=== PATIENT | female | born 1995 | race Caucasian/White ===

== ENCOUNTER 2017-02-21 20:46 | Emergency (ER) | payer OTHER ==
[~2017-02-21 20:46] MED LIST: COLACE 100MG C100 MG PO
== END 2017-02-21 23:00 | disposition home or self-care (01) ==
LOC: ER1 20:46
DX: O99.89 Other specified diseases and conditions complicating pregnancy, childbirth and the puerperium (principal); J02.9 Acute pharyngitis, unspecified; H92.03 Otalgia, bilateral; R19.7 Diarrhea, unspecified; O99.332 Smoking (tobacco) complicating pregnancy, second trimester; F17.210 Nicotine dependence, cigarettes, uncomplicated; Z3A.25 25 weeks gestation of pregnancy
CPT/HCPCS: 86403; 87081; 87880; 99283

== ENCOUNTER 2017-06-13 05:08 | Inpatient (IN) | payer OTHER ==
[~2017-06-13] VITALS: Ht 170.2 cm; Wt 97.5 kg
[2017-06-14 06:51] LABS: HEMOGLOBIN 10.5 gm/dl (12.3-15.3)
[2017-06-14] MEDS ORDERED: NORCO 10-325 T1 EACH PO (09:10)
[2017-06-14] MEDS ORDERED: IBUPROFEN600 MG PO (09:11)
== END 2017-06-14 07:15 | disposition home or self-care (01) | DRG 766 ==
LOC: OB 05:08
PROVIDERS: ADMIT Obstetrics & Gynecology
PROC: 3E0234Z Introduction of Serum, Toxoid and Vaccine into Muscle, Percutaneous Approach (ICD-10-PCS; 2017-06-13)
PROC: 10D00Z1 Extraction of Products of Conception, Low, Open Approach (ICD-10-PCS; principal; 2017-06-13 09:15)
DX: O34.211 Maternal care for low transverse scar from previous cesarean delivery (principal); N85.8 Other specified noninflammatory disorders of uterus; Z3A.39 39 weeks gestation of pregnancy; Z37.0 Single live birth; Z23 Encounter for immunization; O99.330 Smoking (tobacco) complicating pregnancy, unspecified trimester; F17.210 Nicotine dependence, cigarettes, uncomplicated; O99.613 Diseases of the digestive system complicating pregnancy, third trimester; K21.9 Gastro-esophageal reflux disease without esophagitis
CPT/HCPCS: 36415; 82800; 85014; 85018; 90715; C9113; J0690; J2274; J2300; J2405; J2590; J2765; J3010; J7120

== ENCOUNTER 2021-01-31 00:25 | Emergency (ER) | payer OTHER ==
[~2021-01-31 00:25] MED LIST changes: +BACTRIM DS TAB1 EACH PO; +BACTROBAN OINT22 GM EXT; +IBUPROFEN600 MG PO; +IBUPROFEN800 MG PO; +NORCO 10-325 T1 EACH PO; +ZANTAC300 MG PO
== END 2021-01-31 02:00 | disposition home or self-care (01) ==
LOC: ER1 00:25
DX: K08.89 Other specified disorders of teeth and supporting structures (principal); F17.210 Nicotine dependence, cigarettes, uncomplicated; Z79.899 Other long term (current) drug therapy
CPT/HCPCS: 99282

== ENCOUNTER 2022-06-26 00:27 | Emergency (ER) | payer OTHER ==
[2022-06-26 02:51] LABS: HEMOGLOBIN 8.9 gm/dl (12.3-15.3); RED BLOOD COUNT 2.95 M/UL (4.00-5.10); WHITE BLOOD COUNT 11.5 K/UL (4.5-11.0)
[2022-06-26 03:09] LABS: BUN/CREATININE RATIO 23 (0-10)
[2022-06-26] MEDS ORDERED: MELOXICAM7.5 MG PO (05:02)
== END 2022-06-26 05:15 | disposition home or self-care (01) ==
LOC: ER1 00:27
PROVIDERS: Student in an Organized Health Care Education/Training Program
DX: K91.870 Postprocedural hematoma of a digestive system organ or structure following a digestive system procedure (principal); K66.1 Hemoperitoneum; F17.210 Nicotine dependence, cigarettes, uncomplicated
CPT/HCPCS: 80053; 81001; 83605; 85025; 96374; 96375; 99284; J2270; J2405; Q9967